=== PATIENT | male | born 1975 | race Caucasian/White ===

== ENCOUNTER 2018-07-27 23:11 | Emergency (ER) | payer OTHER ==
[~2018-07-27] VITALS: Ht 188 cm; Wt 106.9 kg
--- NOTE | 2018-07-27 23:13 | ED.ADGEN ---
Adult General Chief Complaint Chief Complaint ".. I ve been coughing up blood the last...few days.. " HPI HPI Patient is a 42 year old male [facility] inmate who presents with above hx and complaints of hemoptysis. Patient does smoke. Patient denies any specific ill contacts . No recent travel. No history immunosuppression. There is some remote family history of pulmonary embolisms. Patient has no history of clotting disorder. Patient does take aspirin and anti-inflammatories. Patient unable to produce any hemoptysis during his visit to ED Review of Systems Review of Systems Constitutional: Denies fever or chills [] Eyes: Denies change in visual acuity, redness, or eye pain [] HENT: Denies nasal congestion or sore throat [] Respiratory: Complains of cough and wheezing and hemoptysis Cardiovascular: No additional information not addressed in HPI [] GI: Denies abdominal pain, nausea, vomiting, bloody stools or diarrhea [] : Denies dysuria or hematuria [] Musculoskeletal: Denies back pain or joint pain [] Integument: Denies rash or skin lesions [] Neurologic: Denies headache, focal weakness or sensory changes [] Endocrine: Denies polyuria or polydipsia [] All other systems were reviewed and found to be within normal limits, except as documented in this note. Family History Family History Hx. Blood clotts. Current Medications Current Medications Current Medications Medications (Trade) Dose Ordered Sig/Orion Start Time Stop Time Status Last Admin Dose Admin Albuterol Sulfate (Ventolin Hfa Inhaler) 2 puff 1X ONCE 07/28/18 00:30 07/28/18 00:32 DC 07/28/18 00:39 2 PUFF Info (Do NOT chart on this entry -- for MONITORING) 1 each PRN DAILY PRN 07/28/18 00:15 07/28/18 01:59 DC Iohexol (Omnipaque 300 Mg/ml) 75 ml 1X ONCE 07/28/18 00:30 07/28/18 00:32 DC 07/28/18 00:23 75 ML Lactated Ringer's 1,000 ml @ 1,000 mls/hr Q1H 07/28/18 00:30 07/28/18 01:29 DC 07/28/18 00:38 1,000 MLS/HR Prednisone (Prednisone) 60 mg 1X ONCE 07/28/18 00:30 9/3/18 00:32 DC 07/28/18 00:39 60 MG Allergies Allergies Allergies Coded Allergies Type Severity Reaction Last Updated Verified No Known Drug Allergies 07/27/18 No Physical Exam Physical Exam Constitutional: Well developed, well nourished, no acute distress, non-toxic appearance. [] HENT: Normocephalic, atraumatic, bilateral external ears normal, oropharynx moist, no oral exudates, nose normal. [] Eyes: PERRLA, EOMI, conjunctiva normal, no discharge. [] Neck: Normal range of motion, no tenderness, supple, no stridor. [] Cardiovascular: Tachycardia Heart rate regular rhythm, no murmur [] Lungs & Thorax: Bilateral breath sounds equal apex with scattered wheezes on auscultation [] Abdomen: Bowel sounds normal, soft, no tenderness, no masses, no pulsatile masses. [] Skin: Warm, dry, no erythema, no rash. [] Multiple tattoos Back: No tenderness, no CVA tenderness. [] Extremities: No tenderness, no cyanosis, no clubbing, ROM intact, no edema. [] No Cording in legs. Neurologic: Alert and oriented X 3, normal motor function, normal sensory function, no focal deficits noted. [] Psychologic: Affect normal, judgement normal, mood normal. [] Current Patient Data Vital Signs Vital Signs Date Time Temp Pulse Resp B/P (MAP) Pulse Ox O2 Delivery O2 Flow Rate FiO2 07/28/18 00:55 91 16 137/74 (95) 96 Room Air 07/27/18 23:20 98.6 Lab Results Laboratory Tests Test 07/27/18 23:39 07/27/18 23:43 White Blood Count 10.0 x10^3/uL (4.0-11.0) Red Blood Count 4.99 x10^6/uL (4.30-5.70) Hemoglobin 15.4 g/dL (13.0-17.5) Hematocrit 43.8 % (39.0-53.0) Mean Corpuscular Volume 88 fL (79-100) Mean Corpuscular Hemoglobin 31 pg (25-35) Mean Corpuscular Hemoglobin Concent 35 g/dL (31-37) Red Cell Distribution Width 13.0 % (11.5-14.5) Platelet Count 347 x10^3/uL (140-400) Neutrophils (%) (Auto) 61 % (31-73) Lymphocytes (%) (Auto) 27 % (24-48) Monocytes (%) (Auto) 7 % (0-9) Eosinophils (%) (Auto) 5 % (0-3) H Basophils (%) (Auto) 1 % (0-3) Neutrophils # (Auto) 6.1 x10^3uL (1.8-7.7) Lymphocytes # (Auto) 2.6 x10^3/uL (1.0-4.8) Monocytes # (Auto) 0.7 x10^3/uL (0.0-1.1) Eosinophils # (Auto) 0.5 x10^3/uL (0.0-0.7) Basophils # (Auto) 0.1 x10^3/uL (0.0-0.2) Prothrombin Time < 9.3 SEC (9.4-11.4) L Prothrombin Time INR 0.9 (0.9-1.1) PTT 25 SEC (23-33) D-Dimer (Sandy) 0.39 mg/L (0.00-0.50) Sodium Level 145 mmol/L (136-145) Potassium Level 3.7 mmol/L (3.5-5.1) Chloride Level 108 mmol/L (98-107) H Carbon Dioxide Level 25 mmol/L (21-32) Anion Gap 12 (6-14) Blood Urea Nitrogen 24 mg/dL (8-26) Creatinine 1.1 mg/dL (0.7-1.3) Estimated GFR (Cockcroft-Gault) 72.7 Glucose Level 133 mg/dL (70-99) H Calcium Level 8.8 mg/dL (8.5-10.1) Magnesium Level 1.9 mg/dL (1.8-2.4) Total Bilirubin 0.2 mg/dL (0.2-1.0) Direct Bilirubin < 0.1 mg/dL (0.0-0.2) Aspartate Amino Transferase (AST) 20 U/L (15-37) Alanine Aminotransferase (ALT) 35 U/L (16-63) Alkaline Phosphatase 114 U/L (46-116) Creatine Kinase 175 U/L (39-308) Troponin I Quantitative < 0.017 ng/mL (0-0.055) NL-Tom-J-Type Natriuretic Peptide 22 pg/mL (0-124) Total Protein 7.5 g/dL (6.4-8.2) Albumin 3.5 g/dL (3.4-5.0) Urine Collection Type Unknown Urine Color Yellow Urine Clarity Clear Urine pH 5.0 Urine Specific [place] 1.025 Urine Protein Neg (NEG-TRACE) Urine Glucose (UA) Neg mg/dL (NEG) Urine Ketones (Stick) Neg mg/dL (NEG) Urine Blood Neg (NEG) Urine Nitrite Neg (NEG) Urine Bilirubin Neg (NEG) Urine Urobilinogen Dipstick 0.2 mg/dL (0.2 mg/dL) Urine Leukocyte Esterase Neg (NEG) Urine RBC 0 /HPF (0-2) Urine WBC Occ /HPF (0-4) Urine Squamous Epithelial Cells Occ /LPF Urine Bacteria 0 /HPF (0-FEW) Urine Opiates Screen Neg (NEG) Urine Methadone Screen Neg (NEG) Urine Barbiturates Neg (NEG) Urine Phencyclidine Screen Neg (NEG) Urine Amphetamine/Methamphetamine Neg (NEG) Urine Benzodiazepines Screen Neg (NEG) Urine Cocaine Screen Neg (NEG) Urine Cannabinoids Screen Neg (NEG) Urine Ethyl Alcohol Neg (NEG) EKG EKG My interpretation EKG shows a sinus rhythm at 95 bpm. No findings of acute STEMI of contralateral changes. There is nonspecific contour abnormalities anterior lateral area.[] Radiology/Procedures Radiology/Procedures My interpretation of chest x-ray shows no acute cardiopulmonary findings.. CT chest shows small pulmonary nodules. But no findings of pulmonary embolism or large infiltrate. See formal report when available[] Course & Med Decision Making Course & Med Decision Making Pertinent Labs and Imaging studies reviewed. (See chart for details). Stop Smoking. Take Zithromax 250 mg daily for 5 days. Take prednisone 50 mg daily for 5 days. Use MDI 2 puffs 4 times a day. Follow-up primary care. Repeat x-ray or CT in 6 months to your to evaluate pulmonary nodules. To return if any concerns. Follow-up primary care [] Final Impression Final Impression 1. Coughing[] 2. Bronchitis 3. Hemoptysis Dragon Disclaimer Dragon Disclaimer This electronic medical record was generated, in whole or in part, using a voice recognition dictation system. RIKY JAMISON MD Jul 27, 2018 23:13
--- NOTE | 2018-07-27 23:51 | EKG ---
[address] [address] Test Date: 2018-07-27 Test Time: 23:49:32 Pat Name: RUMA CHAMBERS Department: Room: Gender: M [employer] Grade [employer]: : 1975 Requested By: RIKY JAMISON Order Number: [id number] Reading MD: Waqas Forte MD Measurements Intervals [place] Rate: 95 P: 51 AK: 150 QRS: 74 QRSD: 88 T: 23 QT: 334 QTc: 423 Interpretive Statements SINUS RHYTHM Electronically Signed On 07-29-2018 12:16:40 CDT by Waqas Forte MD
[2018-07-28] LABS: BASO # 0.1 x10^3/uL (0.0-0.2); BASO % 1 % (0-3); EOS # 0.5 x10^3/uL (0.0-0.7); EOS % 5 % (0-3); HEMATOCRIT 43.8 % (39.0-53.0); HEMOGLOBIN 15.4 g/dL (13.0-17.5); LYMPH # 2.6 x10^3/uL (1.0-4.8); LYMPH % 27 % (24-48); MEAN CORPUSCULAR HEMOGLOBIN 31 pg (25-35); MEAN CORPUSCULAR HGB CONC 35 g/dL (31-37); MEAN CORPUSCULAR VOLUME 88 fL (79-100); MONO # 0.7 x10^3/uL (0.0-1.1); MONO % 7 % (0-9); NEUT # 6.1 x10^3uL (1.8-7.7); NEUT % 61 % (31-73); PLATELET COUNT 347 x10^3/uL (140-400); RED BLOOD COUNT 4.99 x10^6/uL (4.30-5.70)
[2018-07-28 00:13] LABS: BACTERIA,URINE 0 /HPF (0-FEW); BARBITURATES NEG (NEG); BENZODIAZEPINES NEG (NEG); BILIRUBIN,URINE NEG (NEG); CANNABINOIDS NEG (NEG); CLARITY,URINE CLEAR; COCAINE NEG (NEG); COLOR,URINE YELLOW; GLUCOSE,URINE NEG (NEG); METHADONE NEG (NEG); NITRITE,URINE NEG (NEG); OPIATES NEG (NEG); PHENCYCLIDINE NEG (NEG); RBC,URINE 0 /HPF (0-2); SQUAMOUS EPITHELIAL CELL,UR OCC /LPF; UROBILINOGEN,URINE 0.2 mg/dL (0.2 mg/dL); WBC,URINE OCC /HPF (0-4)
[2018-07-28 00:15] LABS: AMPHETAMINE/METHAMPHETAMINE NEG (NEG)
[2018-07-28] MEDS ORDERED: CONTRAST GIVEN MC PRN (00:15)
[2018-07-28 00:21] LABS: ALBUMIN 3.5 g/dL (3.4-5.0); ALK PHOS 114 U/L (46-116); ALT (SGPT) 35 U/L (16-63); ANION GAP 12 (6-14); AST (SGOT) 20 U/L (15-37); BLOOD UREA NITROGEN 24 mg/dL (8-26); CALCIUM 8.8 mg/dL (8.5-10.1); CARBON DIOXIDE 25 mmol/L (21-32); CHLORIDE 108 mmol/L (98-107); CREATININE 1.1 mg/dL (0.7-1.3); GFR 72.7; MAGNESIUM 1.9 mg/dL (1.8-2.4); POTASSIUM 3.7 mmol/L (3.5-5.1); SODIUM 145 mmol/L (136-145); TOTAL BILIRUBIN 0.2 mg/dL (0.2-1.0); TOTAL PROTEIN 7.5 g/dL (6.4-8.2)
[2018-07-28 00:26] LABS: DIRECT BILIRUBIN < 0.1 mg/dL (0.0-0.2); GLUCOSE 133 mg/dL (70-99)
[2018-07-28] MEDS ORDERED: IV RINGERS SOLUTION,LACTATED 1,000 ML IV SCH (00:30)
[2018-07-28] MEDS ORDERED: predniSONE 20 MG TABLET PO ONE (00:30)
[2018-07-28] MEDS ORDERED: IOHEXOL 300 MG/ML 75 ML VIAL. IV ONE (00:30)
[2018-07-28] MEDS ORDERED: ALBUTEROL SULFATE 8GM INHALER. INH ONE (00:30)
--- NOTE | 2018-07-28 01:16 | RAD ---
CT angiography chest with contrast HISTORY: Hemoptysis. TECHNIQUE: Helical CT imaging the chest with 3-D MIP reconstructions of the pulmonary arteries to assess for emboli with 75 mL Omnipaque 300 intravenous contrast. FINDINGS: No pulmonary artery emboli. Thoracic aorta and esophagus are unremarkable. Heart size is normal. No adenopathy in the chest. Subcentimeter calcified right thyroid lobe nodule. 5 mm right lower lobe pulmonary nodule image 60. 4 mm right lower lobe pulmonary nodule abutting the diaphragmatic pleura image 102. Trachea and bronchi are unremarkable. Bones are unremarkable. IMPRESSION: No acute process. No pulmonary artery emboli. 2 pulmonary nodules of the right lower lobe largest measuring 5 mm, in a patient without risk factors no follow-up is necessary, in a patient with risk factors for malignancy follow-up CT imaging 12 months would be advised per the Fleischner guidelines. Exposure: One or more of the following individualized dose reduction techniques were utilized for this examination: 1. Automated exposure control 2. Adjustment of the mA and/or kV according to patient size 3. Use of iterative reconstruction technique Electronically signed by: Levy Ramirez MD (07/28/2018 1:14 AM) [id number]
[2018-07-28] MEDS ORDERED: PRED50TA PO (01:40)
[2018-07-28] MEDS ORDERED: AZIT250T PO (01:40)
[2018-07-28 01:41] VITALS: BP 124/78
--- NOTE | 2018-07-28 01:53 | RAD ---
PA and lateral chest x-ray HISTORY: Hemoptysis. FINDINGS: Heart size normal. Mediastinal silhouette is normal. No pneumothorax, pulmonary opacities or pleural effusions. Bones are unremarkable. IMPRESSION: No acute process. Electronically signed by: Levy Ramirez MD (07/28/2018 1:50 AM) [id number]
== END 2018-07-28 01:56 | disposition home or self-care (01) ==
LOC: ER 23:11
DX: J40 Bronchitis, not specified as acute or chronic (principal); R04.2 Hemoptysis
CPT/HCPCS: 36415; 71046; 71275; 80048; 80076; 80307; 81001; 82550; 83735; 83880; 84443; 84484; 85025; 85379; 85610; 85730; 87070; 87205; 93005; 94640; 99285; J7120; J7512; J7613; Q9967; G0479